=== PATIENT | female | born 1990 | race Caucasian/White ===

== ENCOUNTER 2023-04-11 01:39 | Day surgery (SDC) | payer BC, SELFPAY ==
[2023-04-01 14:41] VITALS: BMI 53.3
--- NOTE | 2023-04-10 15:56 | PM.HPGS ---
History of Present Illness History of Present Illness Consent: Risks, benefits, and alternatives have been discussed and questions answered. Patient agrees to proceed with procedure. Chief complaint: Anemia,Noninfective gastroenteritis and colitis Narrative: Abida Russell is a 33 year old female who has a history of anemia and again is having a drop in her blood counts.? Hemoglobin which was 12.2 last February is now 11.8 few months ago.? She also has thrombocytosis which is chronic.? She is followed by Hematology-Oncology through [facility].? They have referred her for EGD and colonoscopy.? She has had problems with intermittent vomiting.? It comes on out of the blue, not necessarily after meal.? She denies difficulty swallowing or significant heartburn.? Her weight is stable.? She does have extremely loose stools.? For the past 2 years she has had oily stools. Review of Systems Review of Systems: All systems reviewed & are unremarkable except as noted in HPI and below PMFSH Past Medical History Medical History Acid reflux Allergies Surgical History Surgical History Hx laparoscopic cholecystectomy Social History Social History Smoking status: Former smoker Tobacco type: cigarettes Alcohol intake: current Alcohol use details: rarely Substance use: never Substance use type: does not use Living arrangements: with family Spiritual care concerns: No Meds Home Medications and Allergies Home Medications Medication Instructions Recorded Confirmed Type No Home Medications 03/12/23 04/11/23 History Allergies Allergy/AdvReac Type Severity Reaction Status Date / Time hydrocodone Allergy Unknown Unknown Verified 04/11/23 10:03 Exam Const: General: alert Orientation/consciousness: patient oriented x3 Resp: Auscultation: clear to auscultation bilaterally Cardio: Rhythm: regular rhythm GI: GI Palp: Yes Soft to palpation and No Tenderness to palpation present (GI) Neuro: General: patient oriented x3 Assessment and Plan Assessment and plan (1) Anemia: Code(s): D64.9 - Anemia, unspecified Status: Acute Assessment and Plan: EGD with possible biopsy or dilatation or cautery.Colonoscopy with possible biopsy or polypectomy or cautery or injection of substances.
[2023-04-11 10:04] VITALS: BP 124/95; PULSE 97; RESP 20; TEMP 36.2; O2SAT 100; BMI 52.7
[2023-04-11] MEDS: LACTATED RINGERS 1,000 ML 150 ML IV CONT (10:13)
--- NOTE | 2023-04-11 10:40 | WPDANESEPPF ---
Anes - Initial Pre Proc Eval Procedure: Operation Date: 04/11/23 11:30 Proposed Procedures p Esophagogastroduodenoscopy & Colonoscopy - Homar Esquivel MD Date/Time: 04/11/23 10:40 Surgeon: Homar Esquivel MD Pre Op Diagnosis: Anemia,Noninfective gastroenteritis and colitis Patient Data Age: 33 Gender: F Height: 1.73 m Weight: 157.3 kg Last Vital Signs Temp 97.2 F L 04/11/23 10:04 Pulse 97 04/11/23 10:04 Resp 20 04/11/23 10:04 BP 124/95 H 04/11/23 10:04 Pulse Ox 100 04/11/23 10:04 O2 Del Method Room Air 04/11/23 10:04 Allergies Allergy/AdvReac Type Severity Reaction Status Date / Time hydrocodone Allergy Unknown Unknown Verified 04/11/23 10:03 Home Medications Medication Instructions Recorded Confirmed Type No Home Medications 03/12/23 04/11/23 History Patient hx anesthesia problems: none Family hx anesthesia problems: none Results Review: All pre-operative results and documents have been reviewed as part of the pre-operative evaluation. [facility] Past Medical History Medical History Acid reflux Allergies Surgical History Surgical History Hx laparoscopic cholecystectomy Social History Social History Smoking status: Former smoker Tobacco type: cigarettes Alcohol intake: current Alcohol use details: rarely Substance use: never Substance use type: does not use Living arrangements: with family Spiritual care concerns: No Anes - Eval Final PreProcedure Day of Procedure 04/11/23 10:40 Patient weight: super morbidly obese Heart: regular rate and rhythm Lungs: clear to auscultation Airway: Mallampati scale class III Neurological: alert and oriented Last oral intake: >/= 8 hours ASA classification: III Emergent: no Anesthetic plan: proceed Anesthesia type and monitoring: general GIVS and standard monitoring Results Review: All pre-operative results and documents have been reviewed as part of the pre-operative evaluation. Informed Consent: The patient's anesthetic plan and its attendant risks and benefits were discussed with the patient/family/POA. Questions were solicited and answers provided to the satisfaction of the patient/family/POA.
--- NOTE | 2023-04-11 11:09 | SUR.OPER ---
EGD: [id number] Colon: Start 1107
[2023-04-11] MEDS: SIMETHICONE ORAL SUSPENSION 20 MG/0.3 ML 30 ML BOTTLE 0.6 ML IRRIGATION (11:13)
[2023-04-11 11:25] VITALS: BP 114/67; PULSE 68; RESP 23; O2SAT 100
[2023-04-11 11:35] VITALS: BP 123/75; PULSE 70; RESP 22; O2SAT 100
[2023-04-11 11:45] VITALS: BP 134/85; PULSE 81; RESP 19; O2SAT 100
== END 2023-04-11 11:56 | disposition home or self-care (01) ==
PROVIDERS: PCP Nurse Practitioner Family; Visit Provider Internal Medicine Gastroenterology
PROC: 0DJ08ZZ Inspection of Upper Intestinal Tract, Via Natural or Artificial Opening Endoscopic (ICD-10-PCS; CPT 43235; principal; 2023-04-11 11:30)
DX: D64.9 Anemia, unspecified (principal); D12.8 Benign neoplasm of rectum; Z87.891 Personal history of nicotine dependence; E66.01 Morbid (severe) obesity due to excess calories; Z68.43 Body mass index [BMI] 50.0-59.9, adult
CPT/HCPCS: 45385; 45380; 43239; 87081; 88305; J2704; J7120

== ENCOUNTER 2023-12-04 16:33 | Emergency (ER) | payer BC, SELFPAY ==
--- NOTE | ~2023-12-04 | XR_ITS ---
EXAMINATION: XR chest 2V DATE: 12/04/2023 22:16 INDICATION: Hematemesis. TECHNIQUE: Frontal and lateral views of the chest were obtained. COMPARISON: Chest 2 views 04/26/2010 FINDINGS: There is no pneumonia, pleural effusion, or pneumothorax. The heart size is normal. IMPRESSION: 1. No acute cardiopulmonary disease. Reviewed, dictated and finalized at location E.
[2023-12-04 16:33] VITALS: BP 153/103; PULSE 86; RESP 16; TEMP 36.6; O2SAT 100
[2023-12-04 19:29] VITALS: BP 154/92; PULSE 80; RESP 20; TEMP 36.9; O2SAT 100
--- NOTE | 2023-12-04 20:10 | ED.GIBLEED ---
HPI - GI Bleed General Chief complaint: GI Bleed Stated complaint: hematemesis Time Seen by Provider: 12/04/23 19:40 History of Present Illness HPI Narrative: 33-year-old female with history of hepatic steatosis presents to the emergency department for vomiting streaks of blood around 1:30 p.m. today. Patient states she has felt very fatigued today. States she felt a sudden urge to vomit after eating lunch and vomited in the toilet. States she was retching at the end of her vomit she noticed streaks of blood in the toilet bowl. She has not vomited or noticed any blood since. Denies hematochezia or melena, abdominal pain, fever, chest pain or shortness of breath, lightheadedness or loss of consciousness. She states she has had similar symptoms in the past however called her PCP and was advised to come to the ED for further evaluation. She had an EGD and colonoscopy performed by Dr. Esquivel on 04/11/2023. Her EGD report was unremarkable and without evidence of ulcers or masses. Her colonoscopy showed a single 6 mm sessile polyp that appeared hyperplastic, otherwise unremarkable. Pathology reports were unremarkable. The patient is currently not on a PPI or antacid. Related Data Allergies Allergy/AdvReac Type Severity Reaction Status Date / Time hydrocodone Allergy Unknown Unknown Verified 12/04/23 16:36 Review of Systems Review of Systems: CONSTITUTIONAL: Denies fever, chills, or sweats. EYES: Denies visual changes, redness, or discharge. ENT: Denies rhinorrhea, congestion, sore throat, or otalgia. CARDIOVASCULAR: Denies chest pain, palpitations, or edema. RESPIRATORY: Denies cough or dyspnea. GASTROINTESTINAL: See HPI GENITOURINARY: Denies dysuria or hematuria. SKIN: Denies rash or itching. MUSCULOSKELETAL: Denies back pain, joint pain, or myalgia. NEUROLOGIC: Denies headache, numbness, or weakness. PSYCHIATRIC: Denies anxiety or depression. [facility] Past Medical History Medical History Acid reflux Allergies Surgical History Surgical History Hx laparoscopic cholecystectomy Social History Social History Smoking status: Former smoker Tobacco type: cigarettes Alcohol intake: current Alcohol use details: rarely Substance use: never Substance use type: does not use Living arrangements: with family Spiritual care concerns: No Exam Narrative: GENERAL: Well-appearing, well-nourished, and in no acute distress. HEAD: Normocephalic, atraumatic. EYES: PERRLA and EOMI. ENT: Nares clear, no rhinorrhea or epistaxis. Mucous membranes moist. NECK: Supple. CHEST: Clear to auscultation. No respiratory distress. No crepitus to chest wall HEART: Regular rate and rhythm. No murmur heard. Normal peripheral pulses. ABDOMEN: Soft, nontender, nondistended, normal active bowel sounds. No rebound, guarding or rigidity. No CVA tenderness. Rectal exam without evidence of hemorrhoids. No hematochezia or melena. Hemoccult negative. EXTREMITIES: Normal range of motion. No edema. SKIN: Warm, dry, no rash. NEURO: No focal deficits. Alert and oriented x3 Course Vital Signs Vital signs: Vital Signs Temperature 97.9 F 12/04/23 16:33 Pulse Rate 86 12/04/23 16:33 Respiratory Rate 16 12/04/23 16:33 Blood Pressure 153/103 H 12/04/23 16:33 Pulse Oximetry 100 12/04/23 16:33 Oxygen Delivery Room Air 12/04/23 16:33 Temperature 98.5 F 12/04/23 19:29 Pulse Rate 79 12/04/23 20:22 Respiratory Rate 14 12/04/23 20:22 Blood Pressure 145/94 H 12/04/23 20:22 Pulse Oximetry 98 12/04/23 20:22 Oxygen Delivery Room Air 12/04/23 20:22 MDM - GI Bleed MDM Narrative Medical decision making narrative: 33-year-old female presents to emergency department for vomiting streaks of blood who today after retching. See HPI f
[2023-12-04 20:22] VITALS: BP 145/94; PULSE 79; RESP 14; O2SAT 98
[2023-12-04] MEDS: SODIUM CHLORIDE 0.9% IV 1,000 ML 999 ML IV CONT (20:26)
[2023-12-04] MEDS: PANTOPRAZOLE SODIUM IV 40 MG VIAL IV PUSH (20:26)
[2023-12-04 20:33] LABS: Basophils Percent Auto 0.3 % (0.2-1.2); Eosinophils Absolute Auto 0.2 K/mm3 (0-0.3); Eosinophils Percent Auto 1.6 % (0-4.4); Hematocrit 38.4 % (37.0-47.0); Hemoglobin 12.2 g/dL (12.0-15.0); Immature Granulocyte Absolute 0.05 K/mm3 (0.00-0.031); Immature Granulocyte Percent A 0.5 % (0-0.5); Lymphocytes Absolute Auto 3.32 K/mm3 (0.9-3.2); Lymphocytes Percent Auto 34.2 % (18.3-44.2); Mean Corpuscular HGB Conc 31.8 g/dl (32-36); Mean Corpuscular Hemoglobin 29.2 pg (26-34); Mean Corpuscular Volume 91.9 fl (80-100); Mean Platelet Volume 9.3 fl (7.4-10.4); Monocytes Absolute Auto 0.6 K/mm3 (0.1-0.6); Monocytes Percent Auto 5.9 % (2.6-8.5); Neutrophils Absolute Auto 5.6 K/mm3 (1.3-6.7); Neutrophils Percent Auto 57.5 % (45.5-73.1); Platelet Count Result 474 k/mm3 (150-375); Red Blood Count 4.18 M/mm3 (4.2-5.4); Red Cell Distribution Width 14.1 % (11.5-14.5); White Blood Count 9.7 K/mm3 (4.5-10.0)
[2023-12-04 20:46] LABS: Partial Thromboplastin Time 30.2 Seconds (22.3-36.8)
[2023-12-04 20:48] LABS: Lactic Acid Reflex 0.9 mmol/L (0.7-2.0)
[2023-12-04 21:01] LABS: Alanine Aminotransferase 18 U/L (6-35); Albumin Level 4.5 g/dL (3.5-5.1); Alkaline Phosphatase 113 U/L (38-126); Anion Gap 6 mmol/L (4-12); Aspartate Amino Transferase 20 U/L (14-36); Bilirubin,Total 0.7 mg/dL (0.2-1.3); Blood Urea Nitrogen 13 mg/dL (7-17); Calcium 9.2 mg/dL (8.4-10.2); Carbon Dioxide 27 mmol/L (22-30); Chloride 107 mmol/L (98-107); Estimated CRCL calculation 158 ml/min; Estimated Glomerular Filt Rate > 60; Glucose 98 mg/dL (65-110); Magnesium 2.1 mg/dL (1.6-2.3); Potassium 3.7 mmol/L (3.4-5.0); Sodium 140 mmol/L (137-145)
[2023-12-04 22:40] VITALS: BP 142/87; PULSE 82; RESP 17; O2SAT 100
== END 2023-12-04 22:42 | disposition home or self-care (01) ==
PROVIDERS: Emergency Provider Physician Assistant; PCP Nurse Practitioner Family
DX: K92.0 Hematemesis (principal); K21.9 Gastro-esophageal reflux disease without esophagitis; Z87.891 Personal history of nicotine dependence; Z90.49 Acquired absence of other specified parts of digestive tract
CPT/HCPCS: 36415; 71046; 80053; 83605; 83735; 85025; 85610; 85730; 96361; 96374; 99284; C9113; J7030

== ENCOUNTER 2023-12-12 15:50 | Outpatient (CLI) | payer BC, SELFPAY ==
[2023-12-12 17:09] LABS: Iron 89 ug/dL (37-170)
[2023-12-12 17:19] LABS: Percent Iron Saturation 31 % (20-50)
[2023-12-12 18:16] LABS: Folic Acid 6.6 ng/mL (2.76->20)
[2023-12-18 03:28] LABS: Immunoglobulin A 408 mg/dL (47-310)
== END 2023-12-12 15:51 | disposition home or self-care (01) ==
LOC: ANHLAB 15:52
PROVIDERS: PCP Nurse Practitioner Family; Visit Provider Nurse Practitioner Family
DX: K52.9 Noninfective gastroenteritis and colitis, unspecified (principal); R53.83 Other fatigue
CPT/HCPCS: 36415; 82607; 82728; 82746; 82784; 83540; 83550; 86364